=== PATIENT | female | born 1990 | race African-American/Black ===

== ENCOUNTER 2018-01-14 09:57 | Inpatient (IN) ==
[2018-01-14] MEDS ORDERED: LACTATED RINGERS 1,000 ML IV ONE (10:22)
[2018-01-14] MEDS ORDERED: BUTORPHANOL 1 MG/ML VIAL IV PRN (10:22)
[2018-01-14] MEDS ORDERED: ONDANSETRON 4 MG/2 ML VIAL IV PRN (10:22)
[2018-01-14] MEDS ORDERED: OXYTOCIN/LR 20 UNIT/1,000 ML BAG IV SCH (10:30)
[2018-01-14] MEDS ORDERED: LACTATED RINGERS 1,000 ML IV SCH (10:30)
[2018-01-14] MEDS ORDERED: diphenhydrAMINE 50 MG/1 ML VIAL IV PRN ×2 (10:34)
[2018-01-14] MEDS ORDERED: CITRIC ACID/SODIUM CITRATE 30 ML UDCUP PO ONE (10:34)
[2018-01-14] MEDS ORDERED: ePHEDrine 50 MG/ML AMP IV PRN (10:34)
[2018-01-14] MEDS ORDERED: hydrOXYzine HCL 25 MG/1 ML VIAL IM PRN (10:34)
[2018-01-14] MEDS ORDERED: PROMETHAZINE 25 MG/1 ML VIAL IM ONE (10:34)
[2018-01-14] MEDS ORDERED: FAMOTIDINE 20 MG/2 ML VIAL IV ONE (10:34)
[2018-01-14] MEDS ORDERED: fentaNYL 2 MCG/ROPIV 0.2% EPID 150 ML EPIDURAL SCH (11:00)
[2018-01-14 11:01] LABS: Basophils % 0.3 % (0.0-0.8); Eosinophils # 0.1 10*3/uL (0.0-0.87); Eosinophils % 0.8 % (0.00-10.9); Hematocrit 33.1 VOL% (35.7-47.0); Immature Granulocytes % 0.4 %; Immature Granulocytes Absolute 0.03 #; Lymphocytes # 1.4 10*3/uL (1.4-4.0); Lymphocytes % 18.1 % (21.3-54.2); Mean Corpuscular HGB Conc 33.2 GM/DL (32-36); Mean Corpuscular Hemoglobin 31 PG (27-34); Mean Corpuscular Volume 92.5 FL (87-102); Mean Platelet Volume 10.2 FL (9.6-12.0); Monocytes # 0.8 10*3/uL (0.11-0.8); Monocytes % 10.1 % (1.7-12.7); Neutrophils # 5.6 10*3/uL (1.4-7.4); Neutrophils % 70.3 % (38.7-73.9); Platelet Count 236 T/CUMM (130-400); Red Blood Count 3.58 MC/CUMM (3.8-5.5); Red Cell Distribution Width 13.5 % (9.3-17.3); White Blood Count 7.9 T/CUMM (4-12)
[2018-01-14 18:28] LABS: Apearance,Urine CLEAR (Clear); Bilirubin,Urine Negative (Negative); Blood, Urine Negative (Negative); Glucose,Urine (UA) Negative (Negative); Ketones,Urine 80 mg/dL (Negative); Mucus,Urine Occasional /LPF (Occasional); Nitrite,Urine Negative (Negative); Protein,Urine Negative; RBC,Urine <1 /HPF (0-4); Squamous Epithelial Cell,Urine Occasional /HPF (0-10); Urine Color Yellow (Yellow); Urine Specific Gravity 1.009 (1.001-1.035); Urine Urobilinogen < 2.0 EU/DL (0.2-1.0); WBC,Urine 1 /HPF (0-6)
[2018-01-14] MEDS ORDERED: miSOPROStol 200 MCG TABLET ONE (22:12)
[2018-01-14] MEDS ORDERED: LIDOCAINE 1% 50 ML VIAL ONE (22:12)
[2018-01-14] MEDS ORDERED: METHYLERGONOVINE 0.2 MG/1 ML AMP ONE (22:13)
[2018-01-15] MEDS ORDERED: MEPERIDINE 50 MG/1 ML VIAL IV ONE (00:21)
[2018-01-15] MEDS ORDERED: ceFAZolin 1,000 MG in SYRINGE 1 EACH IV ONE (00:30)
[2018-01-15] MEDS ORDERED: WITCH HAZEL PADS 100/JAR TOP PRN (01:13)
[2018-01-15] MEDS ORDERED: BENZOCAINE 20%/MENTHOL 0.5% SPRAY 56 GM CAN TOP PRN (01:13)
[2018-01-15] MEDS ORDERED: BISACODYL 10 MG SUPP RECTAL PRN (01:13)
[2018-01-15] MEDS ORDERED: oxyCODONE/ACETAMINOPHEN 5-325 MG TABLET PO PRN ×2 (01:13)
[2018-01-15] MEDS ORDERED: HYDROCORTISONE 2.5% RECTAL CREAM 30 GM TUBE TOP PRN (01:13)
[2018-01-15] MEDS ORDERED: OXYTOCIN/LR 20 UNIT/1,000 ML BAG IV ONE (01:13)
[2018-01-15] MEDS ORDERED: ACETAMINOPHEN 325 MG TABLET PO PRN (01:13)
[2018-01-15] MEDS ORDERED: LANOLIN 50% CREAM 0.3 OZ TUBE TOP PRN (01:13)
[2018-01-15] MEDS ORDERED: MEASLES/MUMPS/RUBELLA VACCINE 0.5 ML VIAL SUBCUT ONE (01:30)
[2018-01-15] MEDS ORDERED: RHO(D) IMMUNE GLOBULIN 300 MCG SYRINGE IM ONE (01:30)
[2018-01-15] MEDS ORDERED: DIPH/TET/ACEL PERT BOOSTER VACCINE 0.5 ML VIAL IM ONE (01:30)
[2018-01-15] MEDS: ceFAZolin 1,000 MG in SYRINGE 1 EACH IV SCH ×3 (06:23→18:23)
[2018-01-15 06:27] LABS: Basophils % 0.1 % (0.0-0.8); Hematocrit 29.7 VOL% (35.7-47.0); Hemoglobin 9.7 GM/DL (12.0-16.0); Immature Granulocytes % 1.2 %; Immature Granulocytes Absolute 0.36 #; Lymphocytes # 0.9 10*3/uL (1.4-4.0); Lymphocytes % 3.1 % (21.3-54.2); Mean Corpuscular HGB Conc 32.7 GM/DL (32-36); Mean Corpuscular Hemoglobin 31 PG (27-34); Mean Corpuscular Volume 93.7 FL (87-102); Mean Platelet Volume 9.8 FL (9.6-12.0); Monocytes # 3.5 10*3/uL (0.11-0.8); Monocytes % 12.2 % (1.7-12.7); Neutrophils # 24.1 10*3/uL (1.4-7.4); Neutrophils % 83.4 % (38.7-73.9); Platelet Count 198 T/CUMM (130-400); Red Blood Count 3.17 MC/CUMM (3.8-5.5); Red Cell Distribution Width 13.4 % (9.3-17.3); White Blood Count 28.9 T/CUMM (4-12)
[2018-01-15 07:21] LABS: Band Neutrophils 12 % (0-10); Hypochromasia 1+; Lymphocytes 1 % (20-55); Macrocytosis 1+; Platelet Estimate Adequate; Segmented Neutrophils 80 % (50-85); Target Cells Slight; Total Cells Counted 100
[2018-01-15] MEDS: DOCUSATE SODIUM 100 MG CAPSULE PO SCH ×2 (09:08→20:25)
[2018-01-15] MEDS: IBUPROFEN 800 MG TABLET PO PRN (13:41)
[2018-01-15] MEDS ORDERED: LACTATED RINGERS 1,000 ML IV ONE (17:52)
[2018-01-15] MEDS ORDERED: SUMAtriptan 6 MG/0.5 ML VIAL SUBCUT PRN (17:52)
[2018-01-15] MEDS: BUTALBITAL/ACETAMIN/CAFFEINE 50-325-40 MG TABLET PO PRN (18:32)
[2018-01-15] MEDS: LACTATED RINGERS 1,000 ML IV SCH (20:30)
[2018-01-16] MEDS: BUTALBITAL/ACETAMIN/CAFFEINE 50-325-40 MG TABLET PO PRN ×3 (01:15→15:26)
[2018-01-16] MEDS: LACTATED RINGERS 1,000 ML IV SCH (04:15)
[2018-01-16 08:44] VITALS: BP 135/95
[2018-01-16] MEDS: DOCUSATE SODIUM 100 MG CAPSULE PO SCH (10:15)
[2018-01-16] MEDS: IBUPROFEN 800 MG TABLET PO PRN (10:15)
[2018-01-16] MEDS ORDERED: DIPH/TET/ACEL PERT BOOSTER VACCINE 0.5 ML VIAL IM ONE (15:19)
== END 2018-01-16 17:30 | disposition home or self-care (01) | DRG 560 ==
LOC: N.LDOUT 09:57 → N.LD 09:58 → N.OB 01-15 02:45
PROVIDERS: ADMIT Obstetrics & Gynecology; ATTEND Obstetrics & Gynecology